=== PATIENT | male | born 1985 ===

== ENCOUNTER 2023-12-06 14:37 | Emergency (ER) | payer BC, SELFPAY ==
[2023-12-06 14:44] VITALS: BP 134/87
[2023-12-06 15:20] LABS: % Basophils 0.4 % (0-2); % Eosinophils 0.3 % (0-6); % Lymphocytes 16.6 % (20.5-51.1); % Monocytes 4.4 % (1.7-9.3); % Neutrophils 77.3 % (42.2-75.2); Absolute Basophils 0.1 10^3/uL (0-0.2); Absolute Immature Granulocytes 0.1 10^3/uL (0-0.05); Absolute Lymphocytes 2.1 10^3/uL (1.2-3.4); Absolute Monocytes 0.6 10^3/uL (0.1-0.6); Absolute Neutrophils 9.8 10^3/uL (1.4-6.5); Hematocrit 45.1 % (39.0-52.0); Hemoglobin 15.3 g/dL (13.0-18.0); Mean Corp Hgb Conc. 33.9 g/dL (33.0-37.0); Mean Corpuscular Hgb 28.8 pg (27.0-31.0); Mean Corpuscular Volume 84.9 fL (80.0-94.0); Mean Platelet Volume 9.3 fL (7.4-10.4); Nucleated Red Blood Cells % 0 % (-); Platelet Count 324 10^3/uL (130-400); Red Blood Cell Count 5.31 10^6/uL (4.70-6.10); Red Cell Dist. Width 12.9 % (11.5-14.5); White Blood Cell Count 12.6 10^3/uL (4.8-10.8)
[2023-12-06 15:34] LABS: ALT (SGPT) 24 U/L (0-50); AST (SGOT) 24 U/L (17-59); Alkaline Phosphatase 77 U/L (38-126); Blood Urea Nitrogen 8 mg/dl (9-20); Calcium 10.1 mg/dl (8.4-10.2); Carbon Dioxide 28 mmol/L (22-30); Chloride 102 mmol/L (98-107); Glucose 93 mg/dl (70-99); Potassium 4.4 mmol/L (3.5-5.1); Sodium 140 mmol/L (135-145); Total Bilirubin 0.6 mg/dl (0.2-1.3); Total Protein 7.7 g/dl (6.3-8.2); eGFR > 60.00
[2023-12-06 15:44] LABS: Troponin I < 0.012 ng/ml
[2023-12-06 16:04] LABS: TSH Reflex To Free T4 0.46 uIU/ml (0.47-4.68)
[2023-12-06 16:29] LABS: Free T4 1.12 ng/dl (0.78-2.19)
--- NOTE | 2023-12-06 16:43 | ED.GENMED ---
History of Present Illness
General
Chief Complaint: Heart Rate Problem
Source: patient
Time Seen by Provider: 12/06/23 16:29
History of Present Illness
History of Present Illness:
38yoM with a history of anxiety, IBS-C, and tobacco use presenting with his for evaluation of an elevated heart rate. Patient went to [facility] today for a follow up visit for a right chest wall injury that was sustained at work last week.
He was incidentally found to be tachycardic with HR in the 110-120s and was sent to the ED for evaluation. Patient currently reports right sided chest wall pain from his injury that is improving from last week. He states he injured his chest when he
was squeezing something and felt a pop. He is otherwise asymptomatic and denies any shortness of breath, palpitations, dizziness, syncope, calf pain, fevers, chills. Patient smokes 1 pack/day. He denies any alcohol or drug use. No personal or
family history of cardiac disease
Phy Exam
Physical Exam
Physical Exam:
Heart rate mildly tachycardic during assessment. Regular rhythm.
General Physical Exam
General Presentation: well appearing and no apparent distress
General age: appears stated age
General Skin: warm and dry
General Habitus: normal
General Mental: alert
General Hydration: appears well hydrated
Cardiovascular Exam
Cardiovascular Exam: tachycardia
Pulmonary Exam
Pulmonary Exam: lungs clear, no respiratory distress, no rales, no rhonchi and no cough
Musculoskeletal Exam
Musculoskeletal Exam: no edema
Course
Orders/Labs/Results
Orders:
Orders
12/06/23 14:48
EKG [Electrocardiogram (*1)] Urgent
Reason for Study: Tachycardia
EKG- Treatment ONCE
12/06/23 15:12
Complete Blood Count/With Diff Urgent
Comprehensive Metabolic Panel Urgent
Free T4 Urgent
Magnesium Urgent
TSH Reflex To Free T4 Urgent
Troponin I Urgent
12/06/23 16:42
0.9% Sodium Chloride 1000 ml [Nss] 1,000 ml IV BOLUS
12/06/23 16:43
CR Chest - 2 Views Urgent
Comment:
Reason For Exam: R sided chest pain after an injury last week
12/06/23 17:02
D-Dimer Urgent
Abnormal Lab Results
12/06/23
15:12
WBC 12.6 H 10^3/uL
(4.8-10.8)
Abs Immat Gran (auto) 0.1 H 10^3/uL
(0-0.05)
Absolute Neuts (auto) 9.8 H 10^3/uL
(1.4-6.5)
Immature Gran % 1.0 H %
(0-0.5)
Neutrophils % 77.3 H %
(42.2-75.2)
Lymphocytes % 16.6 L %
(20.5-51.1)
BUN 8 L mg/dl
(9-20)
TSH (Reflex) 0.46 L uIU/ml
(0.47-4.68)
12/06/23 15:12
12/06/23 15:12
Vital Signs
Initial and Last Documented VS:
Initial Vital Signs
Temp Pulse Resp BP Pulse Ox
98.7 F 115 16 134/87 97
12/06/23 14:44 12/06/23 14:44 12/06/23 14:44 12/06/23 14:44 12/06/23 14:44
Last Documented Vital Signs
Temp Pulse Resp BP Pulse Ox
98.7 F 84 14 126/92 99
12/06/23 14:44 12/06/23 17:57 12/06/23 17:57 12/06/23 17:57 12/06/23 17:57
MDM/Problems Addressed
Differential Diagnosis Includes:
38yoM here with tachycardia that was found incidentally at urgent care. Only symptom is R sided chest pain which started 1 week ago after an injury. No SOB. No dizziness or syncope. HR 115 in triage. Remainder of vitals normal. Patient is
well-appearing in no acute distress. Exam is reassuring. Differential diagnosis includes but is not limited to: Sinus tachycardia, dehydration, electrolyte abnormality, pulmonary embolism
Initial ED plan: Check cardiac labs, magnesium, D-dimer, TSH, EKG, and chest x-ray. IV fluid bolus.
*Critical Care Note
Total Time (30-74mins, 75-104mins- exclusive of procedures): Not Applicable
Update Note
Update Note:
Labs reveal a leukocytosis with a white count of 12.6 which is nonspecific. Electrolytes normal. D-dimer normal making PE very unlikely. TSH mildly low although T4 is normal. Troponin undetectably low. Chest x-ray is normal. Heart rate
normalized after fluid bolus. Patient remains asymptomatic. He is stable for discharge. Advise follow-up with PCP and ED return precautions discussed. He was discharged in stable condition.
ED Attending Note
-
Portions of this chart may have been created with voice recognition software.� Occasional wrong word or��sound alike� substitutions may have occurred due to the inherent limitations of voice recognition software.
Discharge Plan
Departure
Patient Disposition: Home (Routine Discharge)
Date of Disposition: 12/06/23
Time of Disposition: 17:50
Patient with high blood pressure during this ER visit?: No
Discharge Problem:
Sinus tachycardia
Instructions: Palpitations (DC)
Referrals:
Lenin Parisi MD [Family Provider] -
Activity Restrictions/Additional Instructions:
Use honey for cough. Use Flonase nasal spray daily for postnasal drip.
Please follow-up with your family doctor. Return to the ER with any worsening symptoms.
Interventions
Interventions:
*Risk Screen - Suicide Last Done: 12/06/23 14:44
*General Assessment Last Done: 12/06/23 14:44
*Neglect/Abuse Screening Last Done: 12/06/23 14:44
ED- Fall Risk Assessment Last Done: 12/06/23 16:49
*ED COVID-19 Vaccine History Last Done: 12/06/23 14:44
*Nursing Disposition Last Done: 12/06/23 18:01
ED- Cardiac Assessment Last Done: 12/06/23 17:05
ED- Pulmonary Assessment Last Done: 12/06/23 17:05
Discharge Date and Time
Discharge Date/Time: 12/06/23 18:01
Print Language: [place]
[2023-12-06 16:56] VITALS: BP 128/92
[2023-12-06 17:00] VITALS: BP 122/93
[2023-12-06] MEDS: NSS 1000 IV (17:07)
[2023-12-06 17:08] VITALS: BMI 24.8
[2023-12-06 17:25] LABS: D-Dimer 0.28 ug/mlFEU (0.00-0.50)
[2023-12-06 17:57] VITALS: BP 126/92
== END 2023-12-06 18:01 | disposition home or self-care (01) ==
LOC: EMR 14:37
PROVIDERS: Emergency Medicine; Physician Assistant; EMERGENCY PHYSICIAN Student in an Organized Health Care Education/Training Program; FAMILY PHYSICIAN Family Medicine
DX: R00.0 Tachycardia, unspecified (principal); R07.89 Other chest pain; X58.XXXA Exposure to other specified factors, initial encounter; K58.1 Irritable bowel syndrome with constipation; F41.9 Anxiety disorder, unspecified; F17.210 Nicotine dependence, cigarettes, uncomplicated; Z91.040 Latex allergy status
CPT/HCPCS: 99284; 96360; 71046; 80053; 83735; 84439; 84443; 84484; 85025; 85379; 93005